=== PATIENT | female | born 1950 | race Caucasian/White ===

== ENCOUNTER 2021-05-25 13:54 | Outpatient (RCR) | payer MEDICARE, OTHER | END 2021-06-11 | disposition home or self-care (01) | LOC: ONC 13:54 | PROVIDERS: ATTEND Internal Medicine Hematology & Oncology | DX: I82.511 Chronic embolism and thrombosis of right femoral vein (principal); I82.551 Chronic embolism and thrombosis of right peroneal vein; Z79.01 Long term (current) use of anticoagulants; Z85.3 Personal history of malignant neoplasm of breast; Z80.3 Family history of malignant neoplasm of breast; Z80.41 Family history of malignant neoplasm of ovary; Z80.42 Family history of malignant neoplasm of prostate; Z90.13 Acquired absence of bilateral breasts and nipples | CPT/HCPCS: 99214 ==

== ENCOUNTER 2021-06-15 10:28 | Outpatient (RCR) | payer MEDICARE, OTHER | END 2021-07-12 | disposition home or self-care (01) | LOC: ONC 10:28 | PROVIDERS: ATTEND Internal Medicine Hematology & Oncology | DX: C50.411 Malignant neoplasm of upper-outer quadrant of right female breast (principal); I82.401 Acute embolism and thrombosis of unspecified deep veins of right lower extremity; I10 Essential (primary) hypertension; J45.20 Mild intermittent asthma, uncomplicated; Z79.01 Long term (current) use of anticoagulants; Z79.811 Long term (current) use of aromatase inhibitors; Z90.11 Acquired absence of right breast and nipple; Z80.3 Family history of malignant neoplasm of breast; Z98.890 Other specified postprocedural states | CPT/HCPCS: 99213 ==

== ENCOUNTER → 2022-07-20 | Outpatient (CLI) | payer MEDICARE, OTHER ==
--- NOTE | 2022-07-20 13:41 | Diagnostic Imaging Report ---
EXAMINATION: CHEST (PA AND LATERAL) CLINICAL INDICATION: 72-year-old female, dyspnea. COMPARISON: None. FINDINGS: Heart size and mediastinal contours are unremarkable. There is no identified pneumothorax. There is no pleural effusion. There is no identified focal airspace consolidation. There are degenerative changes of the spine. There is cervical spine hardware. IMPRESSION: 1. No identified acute cardiopulmonary abnormality. Dictated by: Dictated on workstation # [id number]
== END ==
LOC: RAD 11:21
PROVIDERS: ATTEND Family Medicine
DX: R06.00 Dyspnea, unspecified (principal); Z72.0 Tobacco use
CPT/HCPCS: 71046